=== PATIENT | male | born 1995 | race Caucasian/White ===

== ENCOUNTER 2018-03-17 04:18 | Emergency (ER) | payer OTHER ==
[~2018-03-17] VITALS: Ht 170.2 cm; Wt 96.8 kg
[~2018-03-17 04:18] MED LIST: IBUPROFEN800 MG PO; NOHOMEMEDS; ZOFRAN4 MG PO
[2018-03-17 05:45] LABS: CHLORIDE 105 mEq/L (99-109); POTASSIUM 4.8 mEq/L (3.7-5.4); SODIUM 143 mEq/L (136-147)
[2018-03-17 05:47] LABS: GLUCOSE 105 mg/dL (70-99); HEMATOCRIT 44.1 % (38.0-50.0); HEMOGLOBIN 15.7 G/DL (12.5-16.6); MCH 29.6 PG (29.0-34.0); MCHC 35.6 G/DL (30.0-36.0); MCV 83.2 FL (86-99); PLATELET COUNT 366 K/uL (156-360); RBC DIS.WIDTH-CV 11.9 % (11.8-14.6); WHITE BLOOD COUNT 10.7 K/uL (4.1-10.2)
[2018-03-17 05:51] LABS: CREATININE 1.2 mg/dL (0.6-1.3); GFR ESTIMATE (CALCULATED) > 59 mL/min/ (58.99-99999)
[2018-03-17 05:52] LABS: UREA NITROGEN (BUN) 12 mg/dL (9-23)
[2018-03-17] MEDS ORDERED: NORCO 5/3251 TABLET PO (06:55)
[2018-03-17 07:40] VITALS: BP 134/83
== END 2018-03-17 07:50 | disposition home or self-care (01) ==
LOC: EME 04:18
PROVIDERS: Emergency Medicine
PROC: 3E0234Z Introduction of Serum, Toxoid and Vaccine into Muscle, Percutaneous Approach (ICD-10-PCS; principal; 2018-03-17)
DX: S50.811A Abrasion of right forearm, initial encounter (principal); S20.312A Abrasion of left front wall of thorax, initial encounter; S50.312A Abrasion of left elbow, initial encounter; S70.02XA Contusion of left hip, initial encounter; S40.012A Contusion of left shoulder, initial encounter; S16.1XXA Strain of muscle, fascia and tendon at neck level, initial encounter; V29.9XXA Motorcycle rider (driver) (passenger) injured in unspecified traffic accident, initial encounter; Z23 Encounter for immunization; F17.200 Nicotine dependence, unspecified, uncomplicated; Z86.19 Personal history of other infectious and parasitic diseases
CPT/HCPCS: 70450; 71260; 72125; 80048; 85027; 99281; 99285; J1885; J3010; J7030